=== PATIENT | male | born 1940 | race Caucasian/White ===

== ENCOUNTER → 2017-10-31 | Outpatient (CLI) | payer MEDICARE ==
[~2017-10-31] MED LIST: ADVIL; ALL300 PO; ALLO-2 PO; ALPR-1 PO; ASPI-715 PO; ATEN-1 PO; ATEN-65 PO; ATOR20TA22 PO; AZIT1PAC13 PO; BEN20 PO; BIMA2.5D5 OP; BRIM5DRO8 OP; CEFU500T50 PO; CLIN300C99 PO; CYAN25004 PO; FLUC100T35 PO; GLIM1TAB25 PO; GLYB1.2524 PO; IBU200 PO; MULT-1 PO; MULT-60 PO; MULT-865 PO; NAPR220C12 PO; PIOG15TA66 PO; PIOG30TA3 PO; SIMV-59 PO; SIMVASTATIN; SITA1TBM7 PO; [UNRECOGNIZED DRUG - CODE] PO
[2017-10-31 16:03] LABS: PLATELET COUNT, AUTOMATED 177 K/uL (150-450)
== END ==
LOC: LAB 15:53
PROVIDERS: ATTEND Family Medicine
DX: C92.00 Acute myeloblastic leukemia, not having achieved remission (principal); E11.9 Type 2 diabetes mellitus without complications
CPT/HCPCS: 36415; 82040; 82247; 82310; 82374; 82435; 82565; 82947; 83036; 84075; 84132; 84155; 84295; 84450; 84460; 84520; 85025

== ENCOUNTER → 2017-12-18 | Outpatient (CLI) | payer MEDICARE | LOC: LAB 16:48 | PROVIDERS: ATTEND Family Medicine | DX: E11.9 Type 2 diabetes mellitus without complications (principal) | CPT/HCPCS: 36415; 83036 ==

== ENCOUNTER 2018-02-01 12:47 | Outpatient (RCR) | payer MEDICARE ==
[2018-01-30 13:49] VITALS: BP 137/95
[2018-01-30 14:00] LABS: PLATELET COUNT, AUTOMATED 173 K/uL (150-450)
[~2018-02-01 12:47] MED LIST changes: -PIOG15TA66 PO; +PIOG15TA67 PO
[2018-02-01 12:57] VITALS: BP 132/83
--- NOTE | 2018-02-02 16:24 | ONCOLOGY FOLLOW UP NOTE ---
EVENT DATE: February 01, 2018 DIAGNOSES 1. 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 2. Gout. 3. 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 CHIEF COMPLAINT The patient is here today for followup of his AML and iron overload. ONCOLOGY HISTORY The patient is a 78-year-old male. PRESENTATION Bilateral knee and ankle pains. DIAGNOSTIC EVALUATION CBC showed hemoglobin of 5.8, and the patient was thought to have hemolytic anemia. He was transferred to the [facility] for further evaluation and treatment on May 18, 2011. At that time, the patient received 4 units of packed RBCs. B12, folate and ferritin all came within the normal range. LDH was normal. Haptoglobin was normal. Karolina test was negative. The patient was evaluated by a gastroenterology professor, who did not find any reason for him to have the pain in his ankles and knees. PROCEDURE Bone marrow aspiration biopsy done on June 03, 2011 came back positive for hypercellular marrow for the age with 80-90% cellularity, showing myeloid predominance, 8% myeloblasts. 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 TREATMENT 1. Vidaza daily for seven days every twenty-eight days, started on June. 2. Induction of chemotherapy of 7 + 3 regimen with Renetta-C and idarubicin given on July 26, 2011. The patient achieved complete remission after bone marrow aspiration biopsy done on day fifteen after starting induction chemotherapy. 3. The patient started consolidation chemotherapy in August of 2011 and he received three courses of high dose Renetta-C, completed in October 2011. 4. Repeat bone marrow aspiration biopsy on December 14, 2011 did reveal achievement of acute, complete remission morphologically, by flow cytometry, cytogenetically and morphologically. HISTORY OF PRESENT ILLNESS The patient is here today for followup of his acute myeloid leukemia in remission. Patient is totally asymptomatic today and denies any constitutional symptoms. PAST MEDICAL HISTORY 1. Gout. 2. AML with invasion of chromosome 16. 3. Hypertension. 4. Hyperlipidemia. PAST SURGICAL HISTORY Tonsillectomy as a child. SOCIAL HISTORY The patient is . He has three sons. He is a retired community coordinator for high school. He occasionally drinks beer, but no acute of tobacco or drugs. FAMILY HISTORY Negative for cancer or blood diseases. CURRENT MEDICATIONS 1. Janumet XR 100-1000 mg tablet 1 tablet daily. 2. Glyburide 1.125 mg 3 times daily. 3. Allopurinol 300 mg daily. 4. Simvastatin 80 mg daily. 5. Atenolol 50 mg daily. ALLERGIES No known drug allergies. REVIEW OF SYSTEMS CONSTITUTIONAL: No appetite or weight change. No fever, chills or sweating. No recent infection. HEENT: Ears: No tinnitus or hearing problem. Nose: No nasal discharge or epistaxis. Throat: No sore throat or mouth ulcers. Eyes: No diplopia or visual changes. RESPIRATORY: No shortness of breath. No cough, expectoration or hemoptysis. CARDIOVASCULAR: No chest pain, orthopnea, or paroxysmal nocturnal dyspnea (PND) . No edema. No palpitations. GASTROINTESTINAL: No nausea or vomiting. No diarrhea or constipation. No change in bowel movements. No heartburn or swallowing difficulties. No abdominal pain. No jaundice. No hematemesis, melena or rectal bleeding. GENITOURINARY: No hematuria or dysuria. MUSCULOSKELETAL: No pain in the muscles, joints or bones. NEUROLOGICAL: No tingling or numbness in the hands or feet. No headaches or convulsions. HEMATOLOGIC/LYMPHATIC: No bleeding or easy bruising. No weakness or fatigue. No enlarged lymph nodes. SKIN: No skin rash or lumps. PSYCHIATRIC: No anxiety or depression. PHYSICAL EXAMINATION GENERAL: Looks stable. Well-developed, well-nourished, and in no acute distress. VITAL SIGNS: Blood pressure 132/83, pulse 60 per minute, respirations 16 per minute, temperature 97.2, pulse ox. 99% on room air. HEENT: Head: Atraumatic. No sinus tenderness to palpation. Eyes: No icterus or conjunctivitis. Mouth and throat: No oral thrush or mucositis. NECK: Supple. No cervical or supraclavicular lymphadenopathy. LUNGS: Clear to auscultation and percussion bilaterally. HEART: Regular rate and rhythm. No gallops, murmurs, clicks or rubs. ABDOMEN: Soft and lax. No tenderness. No hepatosplenomegaly. No masses. EXTREMITIES: No cyanosis, clubbing or edema. LYMPHATICS: No peripheral lymphadenopathy. NEUROLOGICAL: Conscious, alert and oriented times three. No focal motor or sensory deficits. PSYCHIATRIC: Mood and affect appear normal. SKIN: No skin rash, bruise or purpuric eruption. DIAGNOSTIC DATA CBC showed white count 6000, hemoglobin 15.6, hematocrit 44.9, platelets 173, 000. Chem panel totally normal, except chloride 108, blood sugar 185. Serum iron 99, TIBC 177, iron saturation 55% and ferritin 278. ASSESSMENT 1. 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 The patient achieved complete remission after induction chemotherapy. He received three cycles of consolidation chemotherapy with high-dose Renetta-C, received between September 10, 2011 through October,. Bone marrow aspiration biopsy December 14, 2011 revealed the achievement of complete remission morphologically by flow cytometry, cytogenetic analysis and FISH. He is currently in complete remission after seven years and theoretically is considered cured. I am planning to continue followup. I will see him again in one year with CBC, chem panel, LDH, uric acid and iron studies. 2. Iron overload, most probably due to previous blood transfusion. His current iron studies show ferritin 278, iron saturation 55%, TIBC 177 and serum iron 99. We will continue to follow with each visit. The patient was found to be heterozygous for H63D mutation. 3. Gout, on allopurinol. Continue same treatment. PLAN 1. Continue followup. 2. The patient to return in one year with CBC, chem panel, LDH, uric acid and iron studies with ferritin. 3. The patient to contact us for any new concerns or complaints. JACKSOND
[2018-02-07] MEDS ORDERED: GLIM1TAB25 PO (12:34)
[2018-03-02] MEDS ORDERED: ATEN-65 PO ×2 (12:40→12:41)
[2018-03-02] MEDS ORDERED: ALLO-2 PO (12:40)
== END 2018-03-14 14:03 | disposition home or self-care (01) ==
LOC: ONC 12:47
PROVIDERS: ATTEND Nurse Practitioner Family
DX: C92.01 Acute myeloblastic leukemia, in remission (principal); R79.89 Other specified abnormal findings of blood chemistry; E61.1 Iron deficiency; M10.9 Gout, unspecified
CPT/HCPCS: 36415; 82728; 83540; 83550; 83615; 85025; G0463; 82040; 82247; 82310; 82374; 82435; 82565; 82947; 84075; 84132; 84155; 84295; 84450; 84460; 84520; 99212

== ENCOUNTER → 2018-03-21 | Outpatient (CLI) | payer MEDICARE ==
[~2018-03-21] MED LIST changes: +RANI-318 PO
== END ==
LOC: LAB 16:17
PROVIDERS: ATTEND Family Medicine
DX: E11.9 Type 2 diabetes mellitus without complications (principal)
CPT/HCPCS: 36415; 82040; 82247; 82310; 82374; 82435; 82565; 82947; 83036; 84075; 84132; 84155; 84295; 84450; 84460; 84520